=== PATIENT | male | born 1950 | race Caucasian/White ===

== ENCOUNTER 2017-08-26 11:04 | Emergency (ER) | payer OTHER ==
[2017-08-26 11:07] VITALS: BP 174/98; BMI 31.3
[2017-08-26 11:36] LABS: BASOPHILS # (AUTO) 0.1 X10^3/uL (0.0-0.1); BASOPHILS % (AUTO) 0.5 % (0.2-1.0); EOSINOPHILS # (AUTO) 0.2 x10^3/uL (0.0-0.2); EOSINOPHILS % (AUTO) 1.4 % (0.9-2.9); HEMATOCRIT 44.7 % (42.0-54.0); HEMOGLOBIN 15.5 g/dL (13.5-18.0); LYMPHOCYTES # (AUTO) 2.1 X10^3/uL (1.3-2.9); LYMPHOCYTES % (AUTO) 18.7 % (21.0-51.0); MEAN CORPUSCULAR HEMOGLOBIN 32.8 pg (27.0-34.0); MEAN CORPUSCULAR HGB CONC 34.7 g/dL (33.0-35.0); MEAN CORPUSCULAR VOLUME 94.8 fL (80.0-100.0); MEAN PLATELET VOLUME 8.3 fL (7.4-11.0); MONOCYTES % (AUTO) 8.5 % (0.0-13.0); NEUTROPHILS # (AUTO) 8.1 x10^3/uL (2.2-4.8); NEUTROPHILS % (AUTO) 70.9 % (42.0-75.0); PLATELET COUNT 269 X10^3/uL (150.0-450.0); RED BLOOD COUNT 4.72 X10^6/uL (4.7-6.0); WHITE BLOOD COUNT 11.5 X10^3/uL (3.6-10.0)
--- NOTE | 2017-08-26 11:42 | DR.GENAD ---
HPI - PCP Primary Care Physician: NFD - Complaint/Symptoms Chief Complaint Doctors Comments: Lt. sided flank pain onset this a.m. He has associated nausea. He denies radiation, there is no hematuria. Chief Complaint:: PT C/O LT FLANK/ LT SIDED ABD PAIN. PT STATES THE PAIN STARTED THIS AM WHEN HE WOKE UP. PT ALSO STATES HE HAS BEEN NAUSEATED - Source History Provided: Patient - Mode of Arrival Mode of Arrival: Ambulatory - Timing Onset of Chief Complaint: 08/26/17 PMH - PMH Past Medical History: No Past Surgical History: Yes Surgical History: Appendectomy Past Surgical History Comment: SPLEENECTOMY - Family History History of Family Medical Conditions: No - Social History Does patient currently use any type of tobacco product: No Have you used tobacco products in the last 12 months: No Type of Tobacco Use: None Does any household member use tobacco: No Alcohol Use: Rarely Do you use any recreational Drugs:: No Lives With: Family Lives Where: Home - infectious screening In the last 2 months have you had wt loss of >10#?: NO Have you had fever, night sweats or hemotysis?: No Have you traveled outside the country in the last 6 months?: No Isolation: Standard ROS - Review of Systems Constitutional: No Symptoms Reported Eyes: No Symptoms Reported ENTM: No Symptoms Reported Respiratoy: No Symptoms Reported Cardiovascular: No Symptoms Reported Gastrointestinal/Abdominal: Abdominal Pain (in LLQ) Genitourinary: No Symptoms Reported Neurological: No Symptoms Reported Musculoskeletal: No Symptoms Reported Integumentary: No Symptoms Reported Hematologic/Lymphatic: No Symptoms Reported Endocrine: No Symptoms Reported Psychiatric: No Symptoms Reported All Other Systems: Reviewed and Negative PE - Vital Signs Vitals: Temperature 97.6 F Pulse Rate 99 Respiratory Rate 22 Blood Pressure 174/98 O2 Sat by Pulse Oximetry 95 - General Limitations: No Limitations General Appearance: Alert, In No Apparent Distress - Head Head Exam: Normal Inspection - Eyes Eye exam: Normal Appearance, PERRL, EOMI - ENT ENT Exam: Normal Exam, Normal Oropharynx - Neck Neck Exam: Normal Inspection, Full ROM - Chest Chest Inspection: Normal Inspection, Symmetric Chest Wall Rise - Respiratory Respiratory Exam: Normal Lung Sounds Bilat - Cardiovascular Cardiovascular Exam: Regular Rate, Normal Rhythm - Abdominal Exam Abdominal Exam: Normal Inspection, Tenderness (LLQ), Other (Obese abdomen) - Extremities Extremities Exam: Normal Inspection, Full ROM - Back Back Exam: Normal Inspection Course - Reevaluation 1st: Improved 2nd: Improved - Education/Counseling Education/Counseling: Patient, Family, Education Educated On: Treatment, Diagnosis, Prognosis, Needs for Follow Up ROR - Labs Reviewed Result Diagrams: 08/26/17 11:28 08/26/17 11:28 Laboratory: WBC 11.5 X10^3/uL (3.6-10.0) H 08/26/17 11:28 RBC 4.72 X10^6/uL (4.7-6.0) 08/26/17 11:28 Hgb 15.5 g/dL (13.5-18.0) 08/26/17 11:28 Hct 44.7 % (42.0-54.0) 08/26/17 11:28 MCV 94.8 fL (80.0-100.0) 08/26/17 11:28 MCH 32.8 pg (27.0-34.0) 08/26/17 11:28 MCHC 34.7 g/dL (33.0-35.0) 08/26/17 11:28 RDW 13.0 % (11.6-16.5) 08/26/17 11:28 Plt Count 269 X10^3/uL (150.0-450.0) 08/26/17 11:28 MPV 8.3 fL (7.4-11.0) 08/26/17 11:28 Neut % 70.9 % (42.0-75.0) 08/26/17 11:28 Lymph % 18.7 % (21.0-51.0) L 08/26/17 11:28 Shannon % 8.5 % (0.0-13.0) 08/26/17 11:28 Eos % 1.4 % (0.9-2.9) 08/26/17 11:28 Baso % 0.5 % (0.2-1.0) 08/26/17 11:28 Neut # 8.1 x10^3/uL (2.2-4.8) H 08/26/17 11:28 Lymph # 2.1 X10^3/uL (1.3-2.9) 08/26/17 11:28 Shannon # 1.0 x10^3/uL (0.3-0.8) H 08/26/17 11:28 Eos # 0.2 x10^3/uL (0.0-0.2) 08/26/17 11:28 Baso # 0.1 X10^3/uL (0.0-0.1) 08/26/17 11:28 Absolute Nucleated RBC 0.1 /100WBC 08/26/17 11:28 Sodium 140 mmol/L (136-145) 08/26/17 11:28 Corrected Sodium 140 mmol/L (136-145) 08/26/17 11:28 Potassium 4.0 mmol/L (3.5-5.1) 08/26/17 11:28 Chloride 103 mmol/L (98-107) 08/26/17 11:28 Carbon Dioxide 28.1 mmol/L (21-32) 08/26/17 11:28 BUN 16 mg/dL (7-18) 08/26/17 11:28 Creatinine 1.24 mg/dL (0.70-1.30) 08/26/17 11:28 Est GFR (MDRD) Af Amer > 60 (>60) 08/26/17 11:28 Est GFR (MDRD) Non-Af > 60 (>60) 08/26/17 11:28 Glucose 118 mg/dL (65-99) H 08/26/17 11:28 Calcium 9.5 mg/dL (8.5-10.1) 08/26/17 11:28 Corrected Calcium TNP 08/26/17 11:28 Total Bilirubin 0.40 mg/dL (0.2-1.0) 08/26/17 11:28 AST 30 Units/L (15-37) 08/26/17 11:28 ALT 32 Units/L (12-78) 08/26/17 11:28 Alkaline Phosphatase 111 Units/L (46-116) 08/26/17 11:28 Total Protein 7.4 g/dL (6.4-8.2) 08/26/17 11:28 Albumin 3.8 g/dL (3.4-5.0) 08/26/17 11:28 Globulin 3.6 g/dL (2.5-4.5) 08/26/17 11:28 Albumin/Globulin Ratio 1.1 Ratio (1.1-2.1) 08/26/17 11:28 Specimen Type Clean catch urine 08/26/17 11:40 Urine Color Yellow (YELLOW) 08/26/17 11:40 Urine Appearance Clear (CLEAR) 08/26/17 11:40 Urine pH 6.5 (5.0 - 8.0) 08/26/17 11:40 Ur Specific [place] 1.020 (1.000-1.030) 08/26/17 11:40 Urine Protein 2+ (NEGATIVE) 08/26/17 11:40 Urine Glucose (UA) Negative (NEGATIVE) 08/26/17 11:40 Urine Ketones Negative (NEGATIVE) 08/26/17 11:40 Urine Occult Blood 4+ (NEGATIVE) 08/26/17 11:40 Urine Nitrite Negative (NEGATIVE) 08/26/17 11:40 Urine Bilirubin Negative (NEGATIVE) 08/26/17 11:40 Urine Urobilinogen Normal (NORMAL) 08/26/17 11:40 Ur Leukocyte Esterase 1+ (NEGATIVE) 08/26/17 11:40 Urine RBC 10-15 /HPF (NEGATIVE) 08/26/17 11:40 Urine WBC 0-3 /HPF (NEGATIVE) 08/26/17 11:40 Ur Squamous Epith Cells Few /HPF (NEGATIVE) 08/26/17 11:40 Urine Bacteria Negative /HPF (NEGATIVE) 08/26/17 11:40 Urine Mucus Few /HPF (NEGATIVE) 08/26/17 11:40 Ur Culture Indicated? No/not indicated 08/26/17 11:40 - XRAY XRAY Interpreted by: Radiologist (Contrasted CT Scan of the Abdomen/Pelvis, interpreted by radiologist as showing: mildly obstructing distal Lt. ureteral 1 or 2 mm calculus close to the UV junction. 2). Lt. paraumbilical hernia.) - Diagnosis Discharge Problem: Renal colic on left side - Discharge Plan Disposition: HOME, SELF-CARE Condition: Stable - Follow ups/Referrals Follow ups/Referrals: NFD,None [Primary Care Provider] - 3 days - Instructions
[2017-08-26 11:45] LABS: ALANINE AMINOTRANSFERASE 32 Units/L (12-78); ALBUMIN 3.8 g/dL (3.4-5.0); ALKALINE PHOSPHATASE 111 Units/L (46-116); ASPARTATE AMINO TRANSFERASE 30 Units/L (15-37); BLOOD UREA NITROGEN 16 mg/dL (7-18); CALCIUM 9.5 mg/dL (8.5-10.1); CARBON DIOXIDE 28.1 mmol/L (21-32); CHLORIDE 103 mmol/L (98-107); COR NA(FOR HYPERGLY) 140 mmol/L (136-145); CREATININE 1.24 mg/dL (0.70-1.30); SODIUM 140 mmol/L (136-145); TOTAL PROTEIN 7.4 g/dL (6.4-8.2); eGFR BLACK RACES > 60 (>60); eGFR NON BLACK RACES > 60 (>60)
[2017-08-26 11:53] LABS: BILIRUBIN,URINE NEGATIVE (NEGATIVE); BLOOD/HEMOGLOBIN,URINE 4+ (NEGATIVE); GLUCOSE, URINE NEGATIVE (NEGATIVE); KETONES,URINE NEGATIVE (NEGATIVE); LEUKOCYTE ESTERASE ,URINE 1+ (NEGATIVE); NITRITES,URINE NEGATIVE (NEGATIVE); PH,URINE 6.5 (5.0 - 8.0); PROTEIN,URINE 2+ (NEGATIVE); UROBILINOGEN,URINE NORMAL (NORMAL)
[2017-08-26 12:00] LABS: APPEARANCE,URINE CLEAR (CLEAR); BACTERIA,URINE NEGATIVE /HPF (NEGATIVE); COLOR,URINE YELLOW (YELLOW); MUCUS,URINE FEW /HPF (NEGATIVE); SQUAMOUS EPITHELIAL CELL,UR FEW /HPF (NEGATIVE)
[2017-08-26] MEDS ORDERED: ZOFRAN INJ 4 MG VIAL IVP ONE (12:18)
[2017-08-26] MEDS ORDERED: ZOFRAN INJ 4 MG VIAL ONE (12:19)
[2017-08-26] MEDS ORDERED: DILAUDID INJ IVP ONE (12:19)
[2017-08-26] MEDS ORDERED: DILAUDID INJ ONE (12:19)
[2017-08-26] MEDS ORDERED: NS 250 ML IV 250 ML IV ONE (13:23)
[2017-08-26] MEDS ORDERED: MYLICON TAB 80 MG CHEW PO ONE (13:57)
[2017-08-26] MEDS ORDERED: TORADOL 30 MG VIAL IVP ONE (14:00)
[2017-08-26] MEDS ORDERED: TORADOL 30 MG VIAL ONE (14:01)
--- NOTE | 2017-08-26 14:13 | CT ---
History: Left lower quadrant pain with nausea and vomiting Study: CT abdomen and pelvis with oral contrast and 100 mL Omnipaque 350. Sagittal and coronal reform ations were provided. Comparison: None Findings: The visualized lung bases are unremarkable. The liver and spleen and pancreas and adrenal g lands are unremarkable. There is mild left hydronephrosis and hydroureter secondary to a 1 or 2 mm ca lculus in the distal left ureter close to the ureteral vesicle junction. The right kidney is unremark able. There is a left paraumbilical hernia of a loop of jejunum through defect measuring about 2 cm i n width. There is mild dilatation of jejunum proximal to the hernia. There is sigmoid diverticulosis with normal fat planes. The appendix is surgically absent. The urinary bladder is unremarkable. There are degenerative changes in the spine. Impression: 1. Mildly obstructing distal left ureteral 1 or 2 mm calculus, close to the ureterovesical junction 2. Left paraumbilical hernia of a loop of jejunum Reported By:
[2017-08-26] MEDS ORDERED: NS 1000 ML 1,000 ML ONE (14:24)
[2017-08-26] MEDS ORDERED: NS 1000 ML 1,000 ML IV ONE (14:24)
== END 2017-08-26 15:34 | disposition home or self-care (01) ==
LOC: ER 11:27
DX: N23 Unspecified renal colic (principal)
CPT/HCPCS: 36415; 74177; 80053; 81001; 85025; 96365; 96374; 96375; 99283; A4222; J1170; J1885; J2405